=== PATIENT | male | born 1950 | race American Indian/Alaskan Native ===

== ENCOUNTER 2017-08-13 09:36 | Outpatient (RCR) | payer MEDICARE, SELFPAY ==
[2017-08-12 00:41] VITALS: BP 153/87; PULSE 80; RESP 18; TEMP 36.7
[2017-08-13 09:58] VITALS: BP 153/84; PULSE 97; RESP 18; TEMP 37.2
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
== END 2017-09-09 23:59 ==
LOC: WC 09:36
PROVIDERS: Family Provider Family Medicine; PCP Family Medicine; Visit Provider Surgery
DX: M86.662 Other chronic osteomyelitis, left tibia and fibula (principal); L97.822 Non-pressure chronic ulcer of other part of left lower leg with fat layer exposed; G51.0 Bell's palsy; Z87.891 Personal history of nicotine dependence
CPT/HCPCS: 11042

== ENCOUNTER → 2017-09-13 18:15 | Outpatient (RCR) | payer MEDICARE, SELFPAY ==
[2017-09-10 01:01] VITALS: BP 153/84; PULSE 97; RESP 18; TEMP 37.2
[2017-09-11 10:39] VITALS: BP 157/85; PULSE 88; RESP 16; TEMP 37.4
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
[2017-10-01 10:05] VITALS: BP 149/75; PULSE 92; RESP 18; TEMP 36.4
== END ==
LOC: WC 09-11 09:36 → MRI 18:15
PROVIDERS: Family Provider Family Medicine; PCP Family Medicine; Visit Provider Surgery
DX: M86.8X6 Other osteomyelitis, lower leg (principal); L97.829 Non-pressure chronic ulcer of other part of left lower leg with unspecified severity
CPT/HCPCS: 11042; 73720; 99213; A9585; G0463

== ENCOUNTER 2017-10-02 07:27 | Day surgery (SDC) | payer MEDICARE, SELFPAY ==
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
[2017-10-02] VITALS (14 sets, daily range): BP systolic 104–167; BP diastolic 66–101; PULSE 72–120; RESP 16–18; TEMP 36.6–37.1; O2SAT 90–98; BMI 34.4
--- NOTE | 2017-10-02 | UL_PTH ---
PATIENT: DEB HARRIS LOC: [facility] U#:[id number] AGE/SX: 67/M ROOM: RE10/02/[address]: Dr. Bruce Sin MD : 1950 BED: DIS: 10/02/2017 SPEC #: [id number] RECD: 10/02/17 14:46 STATUS: GABRIEL JIAN #: [id number] ANDREEA: 10/02/17 00:[address]: Bruce Sin DEPT: SURGICAL PATHOLOGY RECD BY: Arnoldo Hightower ENTERED: 10/02/17 14:47 SP TYPE: ULCER OTHR DR: Dr. Buddy Ramires MD Tissues: A - Leg, NOS B - Tibia, NOS Procedures: Decalcification bone/plaque Surgery Specimen Level IV HEADER OPERATION: Surgical preparation left anterior leg with incision and drainage PRE-OP DIAGNOSIS: Nonhealing traumatic infected ulcer, left anterior leg with exposed bone; chronic osteomyelitis TISSUE SUBMITTED: A ? Left anterior leg ulcer with exposed bone, B ? Tibia bone MICROSCOPIC DIAGNOSIS A. Left anterior leg ulcer, excision: Granulation with chronic and minimal acute inflammation. Hyperkeratosis. No evidence of malignancy. B. Tibia bone, biopsy: Chronic change. No evidence of acute osteomyelitis. AM:tanna 10/05/17 MICROSCOPIC DESCRIPTION Slides are reviewed. GROSS DESCRIPTION A - Received in fixative is one container labeled with the patient's name and designated anterior leg ulcer. The specimen consists of an O-shaped fragment of coronel skin measuring 3.5 x 2.6 cm and excised to a depth of 0.3 cm. The central portion of the specimen contains a defect (hole) measuring 2 x 1.5 cm. The inner rim of the specimen is inked in blue ink. The outer portion is inked in black ink. Greenhouse Instructor portions of the tissue are submitted in two cassettes. B - Received in fixative is one container labeled with the patient's name and designated bone, right tibia. The specimen consists of multiple irregular fragments of red-coronel bone that in aggregate measure 2.5 x 2.2 x 0.2 cm. The specimen is submitted in its entirety in one cassette after decalcification. / AM:tanna 10/02/17 TC:3 CPT: 55839 x2, [id number]
--- NOTE | 2017-10-02 07:35 | EKG12_ITS ---
Test Reason : PRE OP Blood Pressure : / mmHG Vent. Rate : 074 BPM Atrial Rate : 074 BPM P-R Int : 168 ms QRS Dur : 114 ms QT Int : 388 ms P-R-T Axes : 022 -20 -31 degrees QTc Int : 430 ms Normal sinus rhythm Voltage criteria for left ventricular hypertrophy Inferior infarct (cited on or before 13-FEB-2017) Abnormal ECG When compared with ECG of 13-FEB-2017 09:00, Premature ventricular complexes are no longer Present Confirmed by ALVIN HENSLEY ([id number]), news copy editor SALOME PHILIPPE ([id number]) on 10/04/2017 1:33:13 PM Referred By: Bruce Sin Confirmed By:ALVIN HENSLEY
[2017-10-02 07:55] LABS: Hemoglobin 15.5 g/dl (13.0-16.5); Mean Platelet Vol. 10.4 fl (6.2-12.0); Platelet Count 215 K/mm3 (150-450); RBC Distribution Width CV 13.1 % (11.6-14.6); RBC Distribution Width SD 44.9 fl (35.1-43.9); White Blood Count 6.1 K/mm3 (4.4-11.0)
[2017-10-02 07:57] LABS: Scan Indicated on CBC? Y/N NO
[2017-10-02 08:20] LABS: Anion Gap 9 (5-15); BUN 22 mg/dL (7-18); BUN/Creat Ratio 22.3 RATIO (10-20); Chloride 109 mmol/L (98-107); Creatinine, Serum 0.99 mg/dL (0.70-1.30); EST Glomerular Filtration Rate 80 mL/min (>60); Est Glom Filt Rate - Afr Amer 97 mL/min (>60); Estimated Creatinine Clearance 77.12 ml/min; Glucose 100 mg/dL (70-110); Potassium 4.3 mmol/L (3.5-5.1); Prealbumin 29.7 mg/dL (20.0-40.0); Sodium Level 140 mmol/L (136-145)
[2017-10-02] MEDS: Clindamycin 900 MG/50 ML BAG 75 MG IV (09:20)
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
--- NOTE | 2017-10-02 10:46 | PCM.DC ---
You will use the following diet at home:: No restrictions, Other - encourage nutritional supplementation with protein to help the healing process. Discharge Activity: May not drive while taking narcotic pain medications., - - keep left leg elevated when sitting. patient may ambulate. No standing. May shower in (days): 1 - wear plastic bag over left leg when showering. May resume sexual activity in: No Restrictions Weight Bearing Status: Weight bearing as tolerated Keep extremity elevated above heart level: Left Leg Additional Activity Instructions:: Daily dressing changes with adaptic followed by Silver dressing and gauze and an SANJUANA wrap for compression. Call your doctor if your incision/area has: Continuous Slow Oozing, Sudden Increased Bleeding, Increased Pain/ Swelling, Increased Redness, Foul Smelling Discharge, Swelling at the incision site Call your doctor if you observe: Coldness, Increased Pain, Numbness or Tingling, Shortness of breath, Chest pain, Calf discomfort, Uncontrolled pain Suture Line Care: - Change Dressing in (Days):: 1 - daily dressing changes with adaptic followed by Silver dressing and gauze and an SANJUANA wrap. Cleanse incision/area with: - - wear plastic bag over left leg when showering. Allergies/Adverse Reactions: Allergies Penicillins Allergy (Verified 09/26/17 10:25) Rash propoxyphene [From Darvocet-N] Allergy (Verified 09/26/17 10:25) Rash Medications to take at Discharge Atorvastatin Calcium [Lipitor] 40 mg PO QHS 05/11/16 Tamsulosin HCl [Flomax] 0.4 mg PO DAILY 05/11/16 Aspirin [Aspir-Low] 81 mg PO DAILY 02/26/17 Clindamycin HCl [Cleocin] 300 mg PO TID #42 cap 10/02/17 Clopidogrel Bisulfate [Plavix] 75 mg PO DAILY #0 10/02/17 Levofloxacin [Levaquin] 500 mg PO DAILY #14 tab 10/02/17 Oxycodone HCl/Acetaminophen [Percocet 5/325] 1 - 2 tab PO 4X/DAY PRN PRN 6 Days #50 tab 10/02/17 The following prescriptions were given: Levofloxacin [Levaquin] 500 mg PO DAILY #14 tab Oxycodone HCl/Acetaminophen [Percocet 5/325] 1 - 2 tab PO 4X/DAY PRN PRN 6 Days #50 tab PRN Reason: Pain Clindamycin HCl [Cleocin] 300 mg PO TID #42 cap Primary Care Physician: Buddy Ramires [Primary Care Provider] - Please Follow Up With: Bruce Sin MD When: sunday10/08/17 at [facility]. call [phone] if questions. Proposed Discharge Date: 10/02/17
--- NOTE | 2017-10-02 10:50 | DCINST_ITS ---
You will use the following diet at home:: No restrictions, Other - encourage nutritional supplementation with protein to help the healing process. Discharge Activity: May not drive while taking narcotic pain medications., - - keep left leg elevated when sitting. patient may ambulate. No standing. May shower in (days): 1 - wear plastic bag over left leg when showering. May resume sexual activity in: No Restrictions Weight Bearing Status: Weight bearing as tolerated Keep extremity elevated above heart level: Left Leg Additional Activity Instructions:: Daily dressing changes with adaptic followed by Silver dressing and gauze and an SANJUANA wrap for compression. Call your doctor if your incision/area has: Continuous Slow Oozing, Sudden Increased Bleeding, Increased Pain/ Swelling, Increased Redness, Foul Smelling Discharge, Swelling at the incision site Call your doctor if you observe: Coldness, Increased Pain, Numbness or Tingling , Shortness of breath, Chest pain, Calf discomfort, Uncontrolled pain Suture Line Care: - Change Dressing in (Days):: 1 - daily dressing changes with adaptic followed by Silver dressing and gauze and an SANJUANA wrap. Cleanse incision/area with: - - wear plastic bag over left leg when showering. Allergies/Adverse Reactions: Allergies Penicillins Allergy (Verified 09/26/17 10:25) Rash propoxyphene [From Darvocet-N] Allergy (Verified 09/26/17 10:25) Rash Medications to take at Discharge Atorvastatin Calcium [Lipitor] 40 mg PO QHS 05/11/16 Tamsulosin HCl [Flomax] 0.4 mg PO DAILY 05/11/16 Aspirin [Aspir-Low] 81 mg PO DAILY 02/26/17 Clindamycin HCl [Cleocin] 300 mg PO TID #42 cap 10/02/17 Clopidogrel Bisulfate [Plavix] 75 mg PO DAILY #0 10/02/17 Levofloxacin [Levaquin] 500 mg PO DAILY #14 tab 10/02/17 Oxycodone HCl/Acetaminophen [Percocet 5/325] 1 - 2 tab PO 4X/DAY PRN PRN 6 Days #50 tab 10/02/17 The following prescriptions were given: Levofloxacin [Levaquin] 500 mg PO DAILY #14 tab Oxycodone HCl/Acetaminophen [Percocet 5/325] 1 - 2 tab PO 4X/DAY PRN PRN 6 Days #50 tab PRN Reason: Pain Clindamycin HCl [Cleocin] 300 mg PO TID #42 cap Primary Care Physician: Buddy Ramires [Primary Care Provider] - Please Follow Up With: Bruce Sin MD When: sunday10/08/17 at [facility]. call [phone] if questions. Proposed Discharge Date: 10/02/17
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
== END 2017-10-02 14:11 | disposition home or self-care (01) ==
LOC: SDC 07:28 → AC 07:29
PROVIDERS: Anesthesiology; Family Provider Family Medicine; PCP Family Medicine; Visit Provider Surgery
PROC: (CPT 15002; principal; 2017-10-02 09:00)
DX: M86.662 Other chronic osteomyelitis, left tibia and fibula (principal); L97.826 Non-pressure chronic ulcer of other part of left lower leg with bone involvement without evidence of necrosis; I25.10 Atherosclerotic heart disease of native coronary artery without angina pectoris; V29.9XXS Motorcycle rider (driver) (passenger) injured in unspecified traffic accident, sequela; G51.0 Bell's palsy; H02.102 Unspecified ectropion of right lower eyelid; H02.20 Unspecified lagophthalmos; H04.201 Unspecified epiphora, right side; F17.210 Nicotine dependence, cigarettes, uncomplicated; L85.9 Epidermal thickening, unspecified; Z95.5 Presence of coronary angioplasty implant and graft; I25.2 Old myocardial infarction; E78.00 Pure hypercholesterolemia, unspecified; Z79.82 Long term (current) use of aspirin; Z79.02 Long term (current) use of antithrombotics/antiplatelets; Z79.899 Other long term (current) drug therapy
CPT/HCPCS: 01480; 15002; 27640; 80048; 84134; 85027; 87070; 87075; 87076; 87077; 87102; 87186; 87205; 87206; 88304; 88305; 88311; 93005; 94640; J7120; A4216; J2405

== ENCOUNTER 2017-10-08 11:00 | Outpatient (RCR) | payer MEDICARE, SELFPAY ==
[2017-10-01 13:06] VITALS: RESP 20; TEMP 36.3
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
[2017-10-08 11:17] VITALS: BP 149/98; PULSE 100; RESP 18; TEMP 36.2
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
== END 2017-10-10 23:59 ==
LOC: WC 11:00
PROVIDERS: Family Provider Family Medicine; PCP Family Medicine; Visit Provider Surgery
DX: L97.826 Non-pressure chronic ulcer of other part of left lower leg with bone involvement without evidence of necrosis (principal); H02.102 Unspecified ectropion of right lower eyelid; M86.662 Other chronic osteomyelitis, left tibia and fibula; L84 Corns and callosities; G51.0 Bell's palsy; H02.20 Unspecified lagophthalmos; F17.200 Nicotine dependence, unspecified, uncomplicated; T14.8XXS Other injury of unspecified body region, sequela; V29.9XXS Motorcycle rider (driver) (passenger) injured in unspecified traffic accident, sequela; H04.201 Unspecified epiphora, right side

== ENCOUNTER → 2017-10-09 09:54 | Outpatient (CLI) | payer MEDICARE, SELFPAY | PROVIDERS: Family Provider Family Medicine; PCP Family Medicine; Visit Provider Surgery | DX: M86.662 Other chronic osteomyelitis, left tibia and fibula (principal); L97.926 Non-pressure chronic ulcer of unspecified part of left lower leg with bone involvement without evidence of necrosis; L08.9 Local infection of the skin and subcutaneous tissue, unspecified | CPT/HCPCS: 36569; A4216 ==

== ENCOUNTER 2017-11-05 10:15 | Outpatient (RCR) | payer MEDICARE, SELFPAY ==
[2017-10-02 08:09] VITALS: BMI 34.4
[2017-10-08 11:17] VITALS: BP 149/98
[2017-10-11 01:16] VITALS: PULSE 100; RESP 18; TEMP 36.2
[2017-10-22 10:11] VITALS: BP 178/78; PULSE 71; RESP 16; TEMP 37.5; BMI 34.4
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
[2017-11-05 11:34] VITALS: BP 155/94; PULSE 98; RESP 18; TEMP 36.6; BMI 34.4
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
== END 2017-11-07 23:59 ==
LOC: WC 10:15
PROVIDERS: Family Provider Family Medicine; PCP Family Medicine; Visit Provider Surgery
DX: L97.826 Non-pressure chronic ulcer of other part of left lower leg with bone involvement without evidence of necrosis (principal); V29.9XXS Motorcycle rider (driver) (passenger) injured in unspecified traffic accident, sequela; Z87.891 Personal history of nicotine dependence; G51.0 Bell's palsy; H02.20 Unspecified lagophthalmos; M86.662 Other chronic osteomyelitis, left tibia and fibula; L84 Corns and callosities
CPT/HCPCS: 11042

== ENCOUNTER 2017-11-24 13:15 | Inpatient (IN) | payer MEDICARE, SELFPAY ==
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
[2017-11-23] VITALS (11 sets, daily range): BP systolic 125–177; BP diastolic 72–106; PULSE 88–118; RESP 16–18; TEMP 36.2–37.2; O2SAT 93–98; BMI 32.8; BMI 34.8
--- NOTE | 2017-11-23 11:55 | BON_PTH ---
PATIENT: DEB HARRIS LOC: [facility]2 U#:[id number] AGE/SX: 67/M ROOM: [id number] RE11/24/[address]: Dr. Bruce Sin MD : 1950 BED: 1 DIS: 11/26/2017 SPEC #: [id number] RECD: 11/26/17 08:02 STATUS: GABRIEL JIAN #: [id number] ANDREEA: 11/23/17 11:[address]: Bruce Sin DEPT: SURGICAL PATHOLOGY RECD BY: Clifford Aguayo ENTERED: 11/26/17 12:58 SP TYPE: Bone OTHR DR: Dr. Buddy Ramires MD Tissues: A - Tibia, NOS B - Soft tissues, NOS Procedures: Decalcification bone/plaque Special Stain Group I Surgery Specimen Level III AFB Stain (control) GMS Stain (control) HEADER OPERATION: Excisional debridement ulcer, partial ostectomy, flap reconstruction PRE-OP DIAGNOSIS: Nonhealing traumatic infected ulcer, left anterior leg with exposed bone; chronic osteomyelitis; history of bone graft placement, left leg TISSUE SUBMITTED: A. Debrided bone left tibia, B. Debrided soft tissue left leg MICROSCOPIC DIAGNOSIS A. Debrided bone left tibia: Pieces of bone, negative for acute osteomyelitis. B. Debrided soft tissue left leg: Pieces of skin with underlying tissue with ulceration, acute and chronic inflammation and granulation tissue reaction. Special stains for acid fast bacilli and fungi are negative for organisms; matched controls are appropriate. IZABELA:tanna 11/29/17 MICROSCOPIC DESCRIPTION Slides are reviewed. GROSS DESCRIPTION A - Received in fixative is one container labeled with the patient's name and designated debrided bone left tibia. The specimen consists of multiple pieces of bone that in aggregate measure 3 x 2.5 x 0.3 cm. The entire specimen is submitted in one cassette after decalcification. B - Received in fixative is one container labeled with the patient's name and designated debrided soft tissue left leg. The specimen consists of multiple pieces of skin and soft tissue that in aggregate measure 3 x 2 x 0.5 cm. The entire specimen is submitted in two cassettes. / IZABELA:tanna 11/26/17 TC:2 CPT: 46076 x2, 15627 x2, [id number]
[2017-11-23 12:00] LABS: Prealbumin 32.5 mg/dL (20.0-40.0)
[2017-11-23] MEDS: Mupirocin Ointment 22gm Tube 1 APPLIC (17:14)
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
[2017-11-23] MEDS: Ondansetron 4 MG/2 ML Vial IV (20:45)
[2017-11-23 20:59] LABS: Anion Gap 9 (5-15); BUN 18 mg/dL (7-18); BUN/Creat Ratio 21.6 RATIO (10-20); Calcium,Total 8.7 mg/dL (8.5-10.1); Chloride 110 mmol/L (98-107); Creatinine, Serum 0.83 mg/dL (0.70-1.30); EST Glomerular Filtration Rate 98 mL/min (>60); Est Glom Filt Rate - Afr Amer 118 mL/min (>60); Estimated Creatinine Clearance 94.79 ml/min; Glucose 93 mg/dL (74-106); Potassium 3.9 mmol/L (3.5-5.1); Sodium Level 142 mmol/L (136-145)
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
[2017-11-23] MEDS: Docusate Sodium 100 MG Capsule PO (22:51)
[2017-11-23] MEDS: MethylPREDNISolone 125 MG/2 ML Vial IV (22:51)
[2017-11-23] MEDS: HYDROmorphone 1 MG/ML Syringe IV (22:58)
[2017-11-23] MEDS: Lactated Ringers 1,000 ML 60 ML IV (23:01)
[2017-11-24 00:20] VITALS: BP 145/79; PULSE 94; RESP 16; TEMP 36.6; O2SAT 97
[2017-11-24] MEDS: HYDROmorphone 1 MG/ML Syringe IV (04:43)
[2017-11-24] MEDS: 0.9% NaCl PICC Flush IV ×3 (04:43→22:13)
[2017-11-24] MEDS: Ondansetron 4 MG/2 ML Vial IV (04:47)
[2017-11-24 04:55] VITALS: BP 139/73; PULSE 96; RESP 18; TEMP 36.3; O2SAT 94
[2017-11-24] MEDS: MethylPREDNISolone 125 MG/2 ML Vial IV ×3 (05:04→22:14)
[2017-11-24] MEDS: Enoxaparin 40 MG/0.4 ML Syringe SC (05:04)
[2017-11-24 05:17] LABS: Hematocrit 44.3 % (40-54); Hemoglobin 14.2 g/dl (13.0-16.5); Mean Corp Hgb Conc 32.1 g/gl (32-36); Mean Corpuscular Hgb 30.1 pg (27.0-32.0); Mean Corpuscular Volume 94.1 fL (80-94); Mean Platelet Vol. 10.4 fl (6.2-12.0); Platelet Count 195 K/mm3 (150-450); RBC Distribution Width CV 13.9 % (11.6-14.6); RBC Distribution Width SD 47.7 fl (35.1-43.9); Red Blood Count 4.71 M/mm3 (4.6-6.2); White Blood Count 2.7 K/mm3 (4.4-11.0)
[2017-11-24 05:18] LABS: Scan Indicated on CBC? Y/N YES- FLAGS NOTED
[2017-11-24 05:36] LABS: Anion Gap 8 (5-15); BUN 18 mg/dL (7-18); BUN/Creat Ratio 15.7 RATIO (10-20); Calcium,Total 8.7 mg/dL (8.5-10.1); Chloride 105 mmol/L (98-107); Creatinine, Serum 1.15 mg/dL (0.70-1.30); EST Glomerular Filtration Rate 67 mL/min (>60); Est Glom Filt Rate - Afr Amer 81 mL/min (>60); Estimated Creatinine Clearance 68.42 ml/min; Glucose 208 mg/dL (74-106); Potassium 3.9 mmol/L (3.5-5.1); Prealbumin 30.6 mg/dL (20.0-40.0); Sodium Level 139 mmol/L (136-145)
[2017-11-24 05:53] LABS: Differential Comment SCANNED
[2017-11-24] MEDS: Docusate Sodium 100 MG Capsule PO ×2 (07:46→22:14)
[2017-11-24 10:55] VITALS: BP 138/61; PULSE 105; RESP 18; TEMP 36.8; O2SAT 95
--- NOTE | 2017-11-24 11:14 | PCM.RX.CS ---
Consult Pharmacy has been consulted to manage selected antiobiotic: Vancomycin Type of Consult: Follow-up Suspected Infection: Skin/Soft tissue Prior Doses of Antibiotics Received/Current Regimen: Medications Vancomycin HCl 1,750 mg/ (Sodium Chloride) 535 mls @ 260 mls/hr IV Q12H [facility] Last Admin: 11/24/17 01:38 Dose: 260 mls/hr Vancomycin HCl (Vancomycin) 1,000 mg in 200 mls @ 200 mls/hr IV PREOP ONE Stop: 11/23/17 07:59 Last Admin: 11/23/17 11:07 Dose: 200 mls/hr Labs: Sodium 139 mmol/L (136-145) 11/24/17 05:00 Potassium 3.9 mmol/L (3.5-5.1) 11/24/17 05:00 Chloride 105 mmol/L (98-107) 11/24/17 05:00 Carbon Dioxide 26.0 mmol/L (21.0-32.0) 11/24/17 05:00 Anion Gap 8 (5-15) 11/24/17 05:00 BUN 18 mg/dL (7-18) 11/24/17 05:00 Creatinine 1.15 mg/dL (0.70-1.30) 11/24/17 05:00 Est GFR (MDRD) Af Amer 81 mL/min (>60) 11/24/17 05:00 Est GFR (MDRD) Non-Af 67 mL/min (>60) 11/24/17 05:00 BUN/Creatinine Ratio 15.7 RATIO (10-20) 11/24/17 05:00 Glucose 208 mg/dL (74-106) H 11/24/17 05:00 Microbiology: Microbiology 11/23/17 14:00 Tissue - Leg, Left Wound Culture - Preliminary Gram negative elise 11/23/17 14:00 Bone - Leg, Left Wound Culture - Preliminary Gram negative elise Weight used for dosin.5 kg Estimated Creatinine Clearance: 68 mL/min Goal Trough: 10-15 mcg/mL Pharmacy Plan for Drug Dosing: SCr increased from yesterday. Recommend vancomycin 1000mg IV q12h, check trough Sunday. Pharmacy Service will continue to monitor and adjust dosing as required. Follow-Up Labs: Trough Vancomycin Labs to be done on [date and time ordered]: 11/26/17 @ 0600
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
--- NOTE | 2017-11-24 13:16 | CASEMGMT ---
Per physician rounds w/Dr. Sin. Pt will be able to return home, likely tomorrow or Sunday. Has crutches and splint for leg. Pt has PICC line, if IV antibiotics need to be reordered, will need to arrange on Sunday. If po antibiotics are recommended, pt can dc Sunday with family support and f/u with Dr. Sin. Saranya JAMESONN RN ACM
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
[2017-11-24] MEDS: Lactated Ringers 1,000 ML 60 ML IV (13:36)
[2017-11-24] MEDS: oxyCODONE 5 MG Tablet 10 MG PO (13:49)
[2017-11-24 17:00] VITALS: BP 149/62; PULSE 98; RESP 18; TEMP 36.9; O2SAT 94
[2017-11-24 22:20] VITALS: BP 144/67; PULSE 88; RESP 18; TEMP 36.8; O2SAT 96
[2017-11-25] MEDS: oxyCODONE 5 MG Tablet 10 MG PO ×2 (01:00→19:56)
[2017-11-25 04:20] VITALS: BP 140/68; PULSE 83; RESP 18; TEMP 36.9; O2SAT 94
[2017-11-25] MEDS: 0.9% NaCl PICC Flush IV ×4 (06:00→21:36)
[2017-11-25] MEDS: MethylPREDNISolone 125 MG/2 ML Vial IV ×3 (06:08→21:36)
[2017-11-25] MEDS: Lactated Ringers 1,000 ML 60 ML IV (06:08)
[2017-11-25] MEDS: Enoxaparin 40 MG/0.4 ML Syringe SC (06:12)
[2017-11-25 06:23] LABS: Hematocrit 41.2 % (40-54); Hemoglobin 13.6 g/dl (13.0-16.5); Mean Corpuscular Hgb 31.1 pg (27.0-32.0); Mean Corpuscular Volume 94.1 fL (80-94); Mean Platelet Vol. 10.8 fl (6.2-12.0); Platelet Count 204 K/mm3 (150-450); RBC Distribution Width CV 13.8 % (11.6-14.6); RBC Distribution Width SD 45.1 fl (35.1-43.9); Red Blood Count 4.38 M/mm3 (4.6-6.2); White Blood Count 4.8 K/mm3 (4.4-11.0)
[2017-11-25 06:26] LABS: Erythrocyte Sedimentation Rate 22 mm/hr (0-20); Scan Indicated on CBC? Y/N NO
[2017-11-25 06:27] LABS: Anion Gap 6 (5-15); BUN 21 mg/dL (7-18); CRP 9.54 mg/L (0.0-3.0); Calcium,Total 8.7 mg/dL (8.5-10.1); Chloride 107 mmol/L (98-107); Creatinine, Serum 0.91 mg/dL (0.70-1.30); EST Glomerular Filtration Rate 88 mL/min (>60); Est Glom Filt Rate - Afr Amer 106 mL/min (>60); Estimated Creatinine Clearance 86.46 ml/min; Glucose 192 mg/dL (74-106); Potassium 4.4 mmol/L (3.5-5.1); Sodium Level 142 mmol/L (136-145)
[2017-11-25] MEDS: Docusate Sodium 100 MG Capsule PO ×2 (09:20→21:35)
[2017-11-25 10:00] VITALS: BP 138/71; PULSE 94; RESP 20; TEMP 36.5; O2SAT 96
[2017-11-25 11:32] VITALS: O2SAT 96
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
[2017-11-25 16:00] VITALS: BP 148/71; PULSE 95; RESP 20; TEMP 36.6; O2SAT 95
[2017-11-25] MEDS: diazePAM 5 MG Tablet PO (17:00)
[2017-11-25 20:02] VITALS: BP 149/60; PULSE 89; RESP 18; TEMP 36.8; O2SAT 96
[2017-11-26] MEDS: diazePAM 5 MG Tablet PO ×3 (00:09→11:44)
[2017-11-26] MEDS: Lactated Ringers 1,000 ML 60 ML IV (00:48)
[2017-11-26 02:55] VITALS: BP 158/70; PULSE 76; RESP 18; TEMP 36.6; O2SAT 93
[2017-11-26] MEDS: MethylPREDNISolone 125 MG/2 ML Vial IV (06:33)
[2017-11-26] MEDS: 0.9% NaCl PICC Flush IV (06:33)
[2017-11-26] MEDS: Enoxaparin 40 MG/0.4 ML Syringe SC (06:33)
[2017-11-26 08:47] VITALS: BP 157/79; PULSE 83; RESP 16; TEMP 36.6; O2SAT 94
[2017-11-26] MEDS: Docusate Sodium 100 MG Capsule PO (08:51)
--- NOTE | 2017-11-26 09:45 | CASEMGMT ---
Addendum entered by Micheal Thapa 11/26/17 13:37: Per Mary, wound nurse- pt will have disposable wound vac, will not need home health on dc, pt will f/u with Dr. Sin next Sunday. [facility] will be cancelled. Script for walker faxed to [facility] and will be delivered to hospital. Original Note: Intro role of CM to patient. Plan is for dc today with Home Health. Pt does not have preference for DME company or Home Health. Will need walker on dc. Awaiting Dr. Sin for script and Home Health orders. Referral faxed to [facility] in [place]. Saranya BSN RN ACM
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
--- NOTE | 2017-11-26 13:51 | PCM.DC ---
You will use the following diet at home:: No restrictions, Other - encourage nutritional supplementation with protein to help the healing process. Discharge Activity: May Not Drive, May Shower - wear a plastic bag over left leg when showering., Use Walker - minimize standing when using the walker for ambulation., - - elevate left leg when sitting. May shower in (days): 1 - wear plastic bag over left leg when showering. May resume sexual activity in: No Restrictions Weight Bearing Status: Weight bearing as tolerated, - - no standing. Keep extremity elevated above heart level: Left Leg Call your doctor if your incision/area has: Continuous Slow Oozing, Sudden Increased Bleeding, Increased Pain/ Swelling, Increased Redness, Foul Smelling Discharge, Swelling at the incision site Call your doctor if you observe: Fever of 101 or Higher, Coldness, Increased Pain, Shortness of breath, Chest pain, Calf discomfort, Uncontrolled pain Suture Line Care: - - after VAC is removed next week at wound center, will apply antibiotic ointment to the skin graft and suture line daily. Change Dressing in (Days):: 2 - abdominal wall dressing as needed. Cleanse incision/area with: - - wear plastic bag over left leg when showering. Drain: Suction - yvon drain to bulb suction. empty and record output daily. Additional Instructions: Maintain PICC line until the Pathology is back. If Pathology is positive for osteomyelitis, then will need IV antibiotics. If Pathology is negative for osteomyelitis, then will pull PICC line next week at the wound center. Allergies/Adverse Reactions: Allergies Penicillins Allergy (Verified 11/16/17 08:49) Rash propoxyphene [From Darvocet-N] Allergy (Verified 11/16/17 08:49) Rash Medications to take at Discharge Atorvastatin Calcium [Lipitor] 40 mg PO QHS 05/11/16 Tamsulosin HCl [Flomax] 0.4 mg PO DAILY 05/11/16 Aspirin [Aspir-Low] 81 mg PO DAILY 02/26/17 Clopidogrel Bisulfate [Plavix] 75 mg PO DAILY #0 10/02/17 Diazepam [Valium] 5 mg PO 4X/DAY PRN PRN #30 tab 11/26/17 Docusate Sodium [Colace] 100 mg PO BID #60 cap 11/26/17 Levofloxacin [Levaquin] 500 mg PO DAILY #14 tab 11/26/17 Oxycodone HCl/Acetaminophen [Percocet 5/325] 1 - 2 tab PO 4X/DAY PRN PRN 7 Days #60 tab 11/26/17 ProMETHAzine [Phenergan] 25 mg PO Q4H PRN PRN #30 tab 11/26/17 Walker [Ultra-Light Rollator] 1 ea MC .QDAILY #1 ea 11/26/17 The following prescriptions were given: ProMETHAzine [Phenergan] 25 mg PO Q4H PRN PRN #30 tab PRN Reason: NAUSEA/VOMITING Diazepam [Valium] 5 mg PO 4X/DAY PRN PRN #30 tab PRN Reason: Spasms Levofloxacin [Levaquin] 500 mg PO DAILY #14 tab Oxycodone HCl/Acetaminophen [Percocet 5/325] 1 - 2 tab PO 4X/DAY PRN PRN 7 Days #60 tab PRN Reason: Pain Walker [Ultra-Light Rollator] 1 ea MC .QDAILY #1 ea Docusate Sodium [Colace] 100 mg PO BID #60 cap Primary Care Physician: Buddy Ramires [Primary Care Provider] - Please Follow Up With: Bruce Sin MD - call [phone] if any questions. When: sunday12/03/17 at [facility] center Proposed Discharge Date: 11/26/17
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
[2017-11-26 14:18] VITALS: BP 157/80; PULSE 90; RESP 18; TEMP 36.8; O2SAT 98
--- NOTE | 2017-11-26 14:31 | NURSING ---
wound photo: left medial lower leg skin graft
== END 2017-11-26 14:56 | disposition home or self-care (01) | DRG 574 ==
LOC: SDC 13:26 → MS2 11-25 18:00
PROVIDERS: Admitting Provider Surgery; Family Provider Family Medicine; PCP Family Medicine; Visit Provider Surgery
DX: L97.826 Non-pressure chronic ulcer of other part of left lower leg with bone involvement without evidence of necrosis (principal); M86.662 Other chronic osteomyelitis, left tibia and fibula; I25.10 Atherosclerotic heart disease of native coronary artery without angina pectoris; Z87.891 Personal history of nicotine dependence; Z95.5 Presence of coronary angioplasty implant and graft; S82.202S Unspecified fracture of shaft of left tibia, sequela; V29.9XXS Motorcycle rider (driver) (passenger) injured in unspecified traffic accident, sequela
CPT/HCPCS: 80048; 84134; 85027; 85652; 86140; 87070; 87075; 87077; 87102; 87186; 87205; 87206; 88304; 88305; 88311; 88312; 94762; 97802; J3010; J7040; J7120; A4216; J2405

== ENCOUNTER 2017-12-01 09:16 | Emergency (ER) | payer MEDICARE, SELFPAY ==
[2017-12-01 09:19] VITALS: BP 153/101; PULSE 87; RESP 18; TEMP 36.6; O2SAT 97; BMI 32.8
--- NOTE | 2017-12-01 09:21 | NURSING ---
CALLED MED/SURG UNIT FOR CONSULT REGARDING WOUND VAC ALARMING. APEARS TO BE FROM OCCLUSION DUE TO VAC BEING TO FULL OF DRAINAGE. DISPOSIBLE NO WAY TO EMPTY. CHARGE DIONICIO FROMMED SURG LOOKED AT PUMP SUGGESTD DR QUIÑONES BE NITIFED, USUALLY NOT THIS MUCH DRAINAGE IS ANTICIPATED WHEN THESE PUMPS PLACED. CEHCKED IN AT THIS TIME.
--- NOTE | 2017-12-01 09:32 | ED.RN ---
WOUND HAS NOT BEEN VISUALIZED AT THIS POINT. PT DOES NOT KNOW THE TYPE OF DRAIN. DRAIN HAS A SUCTION BULB AT THE, POSSIBLE KSENIA PAREKH DRAIN, WITH MINIMAL DRAINAGE IN THE BULB. THE WOUND VAC IS FULL AND BEEPING.
--- NOTE | 2017-12-01 10:52 | ED.DCSUM_ITS ---
- ER Visit Summary Date of Service: 12/01/17 Chief Complaint: Nixon for via VAC full History of Present Illness: The patient is a 67 M patient had surgery this past week by Dr. marge Burr for chronic osteomyelitis and nonhealing leg ulcer. He had reconstructive surgery with a flap and graft. A Via VAC was applied. He presents because the reservoir is full. No constitutional, ocular, auditory or visual symptoms. He has no respiratory or cardiac symptoms. He denies fever, chills or sweats. Physical Examination: He remained in place. The reservoir of the via VAC is full. Toes appear normal. Dressing was not taken down. Test Results: None Emergency Department Course and Treatment: There are speaking with Dr. Sin the device was replaced. And he is to follow-up with Dr. marge regan this coming week. Treatment Plan: Replace device and outpatient follow-up Disposition: Discharged to home Impression: Postop wound evaluation for bleeding This note was generated with [employer] dictation software. It may contain incorrect words, spelling, and punctuation that were not noted in review of the chart prior to signing ED Disposition - Plan for ED Patient: Disposition: Home or Assisted Living Chief Complaint: Wound Check Instructions: ED Wound Check Post Op Bleeding Referrals: Buddy Ramires [Primary Care Provider] - Bruce Sin MD [STAFF PHYSICIAN] - 5-7 Days
[2017-12-01 11:33] VITALS: BP 145/98; PULSE 84; RESP 22; O2SAT 97
--- NOTE | 2017-12-01 11:35 | ED.RN ---
THIS NURSE REVIEWED D/C INSTRUCTIONS WITH PT. PT VERBALIZED UNDERSTANDING OF INSTRUCTIONS. PT ASSISTED TO VEHICLE VIA W/C.
== END 2017-12-01 11:35 | disposition home or self-care (01) ==
PROVIDERS: Emergency Provider Emergency Medicine; Family Provider Family Medicine; PCP Family Medicine
DX: Z48.03 Encounter for change or removal of drains (principal); M86.60 Other chronic osteomyelitis, unspecified site; Z87.891 Personal history of nicotine dependence
CPT/HCPCS: 99282

== ENCOUNTER 2017-12-03 10:03 | Outpatient (RCR) | payer MEDICARE, SELFPAY ==
[2017-11-08 00:56] VITALS: BP 149/98; PULSE 98; RESP 18; TEMP 36.6
[2017-12-03 10:07] VITALS: BP 129/80; PULSE 93; RESP 22; TEMP 36
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
== END 2017-12-08 23:59 ==
LOC: WC 10:03
PROVIDERS: Family Provider Family Medicine; PCP Family Medicine; Visit Provider Surgery
DX: L97.826 Non-pressure chronic ulcer of other part of left lower leg with bone involvement without evidence of necrosis (principal); M86.662 Other chronic osteomyelitis, left tibia and fibula; Z87.891 Personal history of nicotine dependence
CPT/HCPCS: 99213; G0463

== ENCOUNTER 2017-12-24 10:45 | Outpatient (RCR) | payer MEDICARE, SELFPAY ==
[2017-12-09 00:48] VITALS: BP 149/98; PULSE 93; RESP 22; TEMP 36
[2017-12-10 10:33] VITALS: BP 148/74; PULSE 102; RESP 18; TEMP 36.5
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
[2017-12-17 09:53] VITALS: BP 142/79; PULSE 106; RESP 16; TEMP 37.6
--- NOTE | 2017-12-17 11:14 | RAD_ITS ---
STUDY: X-RAY CHEST REASON FOR EXAM: Male, 67 years old. Hyperbaric oxygen therapy TECHNIQUE: PA and lateral views of the chest. COMPARISON: Prior study of 03/26/2017 FINDINGS: The lungs are clear and expanded. There is no demonstrated pleural abnormality. Normal size heart. Normal mediastinum and natalia. Normal visualized pulmonary arteries. Normal visualized aortic arch and descending thoracic aorta. There are diffuse degenerative changes of the visualized thoracic spine. Normal visualized ribs, clavicles, and shoulders. There is no demonstrated abnormality of the visualized soft tissue structures of the upper abdomen. RAD/Chest PA and Lateral IMPRESSION: Degenerative changes, as described above. No demonstrated acute cardiopulmonary process. Electronically Signed: Clemente Retana MD at 18:01 EDT , Service support ,
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
--- NOTE | 2017-12-19 12:58 | NURSING ---
This nurse started to evaluate necessary documentation from Dr. Sin to initiate HBO therapy. This documentation is necessary to submit to the insurance company as prior authorization is required. It is to be noted that a wound healing progress has not been signed and is in draft form for all wound care encounters since 10/08/2017. This has been brought to the CM attention and will also be discussed with Dr. Sin. It is also noted that medical necessity is not documented either. Compromise percentage and and graft viability need to be documented as well.
[2017-12-24 11:21] VITALS: BP 126/73; PULSE 104; RESP 18; TEMP 37.6
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
--- NOTE | 2018-01-02 10:37 | NURSING ---
This nurse spoke with pts GURDEEP Rivera RN, on 01/01/[address] Sin's notes being in draft form since 10/08/17. Kary has informed Dr. Sin of this issue. Dr. Sin has made mention of wanting pt to do HBO again but in order to start the preapproval for the pt this nurse is in need of these progress notes stating medical necessity for comp graft dx ( percentage of compromise and graft viability need to be noted as well). Will follow up with Kary again as well make Dr. Sin aware of the need for this again.
== END 2018-01-07 23:59 ==
LOC: WC 10:45
PROVIDERS: Family Provider Family Medicine; PCP Family Medicine; Visit Provider Surgery
DX: L97.822 Non-pressure chronic ulcer of other part of left lower leg with fat layer exposed (principal); M86.162 Other acute osteomyelitis, left tibia and fibula; R60.0 Localized edema; F17.200 Nicotine dependence, unspecified, uncomplicated; M79.89 Other specified soft tissue disorders
CPT/HCPCS: 11042; 11045; 71046; 97597; 97598; 99213; G0463

== ENCOUNTER 2018-02-07 09:00 | Outpatient (RCR) | payer MEDICARE, SELFPAY ==
[2018-01-08 00:41] VITALS: BP 149/98; PULSE 104; RESP 18; TEMP 37.6
[2018-01-08 12:44] VITALS: BP 144/72; PULSE 97; RESP 18; TEMP 36.4
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
--- NOTE | 2018-01-09 08:47 | NURSING ---
Spoke with PD this am about starting preauthorization for HBO and the need for the modality sheet to be finished by the CM. After discussing decided that the best course of action is for this nurse (who is not the CM) to start to get the needed information on the modality sheet to start the preauth as this is time sensitive.
[2018-01-21 09:51] VITALS: BP 131/88; BP 143/89; PULSE 79; PULSE 86; RESP 16; TEMP 36.6; TEMP 37.2
[2018-01-21 12:01] VITALS: BP 150/74; PULSE 79; RESP 16; TEMP 36.6
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
[2018-01-22 08:29] VITALS: BP 141/94; BP 164/81; PULSE 85; PULSE 99; RESP 16; RESP 18
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
[2018-01-23 09:44] VITALS: BP 142/82; BP 144/88; PULSE 103; PULSE 81; RESP 16; RESP 18; TEMP 36.6; TEMP 36.9
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
[2018-01-24 09:15] VITALS: BP 133/88; BP 175/75; PULSE 105; PULSE 85; RESP 16; RESP 18; TEMP 36.6; TEMP 37.2
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
[2018-01-25 08:26] VITALS: BP 131/86; BP 131/89; PULSE 106; PULSE 84; RESP 16; TEMP 36.4; TEMP 36.9
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
[2018-01-29 08:20] VITALS: BP 138/91; BP 138/93; PULSE 101; PULSE 93; RESP 16; RESP 18; TEMP 36.2; TEMP 36.9
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
[2018-01-30 08:30] VITALS: BP 137/74; BP 153/86; PULSE 100; PULSE 79; RESP 16; RESP 18; TEMP 36.6; TEMP 36.9
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
[2018-01-31 08:18] VITALS: BP 124/83; BP 146/86; PULSE 79; PULSE 97; RESP 16; TEMP 36.6; TEMP 37.1
[2018-02-01 08:30] VITALS: BP 138/85; BP 147/87; PULSE 90; PULSE 96; RESP 16; TEMP 36.6; TEMP 36.8
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
[2018-02-05 08:05] VITALS: BP 126/93; BP 137/81; PULSE 102; PULSE 86; RESP 16; TEMP 36.6; TEMP 37.2
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
[2018-02-06 09:24] VITALS: BP 138/87; BP 144/95; PULSE 113; PULSE 85; RESP 16; TEMP 36.6; TEMP 37.1
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
[2018-02-07 09:17] VITALS: BP 142/82; BP 145/91; PULSE 83; PULSE 99; RESP 16; TEMP 36.6; TEMP 36.9
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
== END 2018-02-07 23:59 ==
LOC: WC 09:00
PROVIDERS: Family Provider Family Medicine; PCP Family Medicine; Visit Provider Surgery
DX: T86.828 Other complications of skin graft (allograft) (autograft) (principal); Y83.8 Other surgical procedures as the cause of abnormal reaction of the patient, or of later complication, without mention of misadventure at the time of the procedure; M86.662 Other chronic osteomyelitis, left tibia and fibula; L84 Corns and callosities; Z87.891 Personal history of nicotine dependence; L97.822 Non-pressure chronic ulcer of other part of left lower leg with fat layer exposed; V29.9XXS Motorcycle rider (driver) (passenger) injured in unspecified traffic accident, sequela; Z79.899 Other long term (current) drug therapy; Z79.02 Long term (current) use of antithrombotics/antiplatelets; Z79.82 Long term (current) use of aspirin
CPT/HCPCS: 11042; 11045; 99183; G0277

== ENCOUNTER 2018-02-20 09:00 | Outpatient (RCR) | payer MEDICARE, SELFPAY ==
[2018-02-08 00:37] VITALS: BP 145/91; PULSE 83; RESP 16; TEMP 36.6
[2018-02-08 08:16] VITALS: BP 119/84; PULSE 112; RESP 18; TEMP 37.2
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
[2018-02-19 08:10] VITALS: BP 132/80; BP 139/84; PULSE 70; PULSE 81; RESP 16; TEMP 36.4; TEMP 37
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
[2018-02-20 09:21] VITALS: BP 138/84; BP 143/87; PULSE 75; PULSE 91; RESP 16; TEMP 36.6; TEMP 37.2
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
== END 2018-03-09 23:59 ==
LOC: WC 09:00
PROVIDERS: Family Provider Family Medicine; PCP Family Medicine; Visit Provider Surgery
DX: M86.662 Other chronic osteomyelitis, left tibia and fibula (principal); Z87.891 Personal history of nicotine dependence; V29.9XXS Motorcycle rider (driver) (passenger) injured in unspecified traffic accident, sequela; L97.826 Non-pressure chronic ulcer of other part of left lower leg with bone involvement without evidence of necrosis; Z79.899 Other long term (current) drug therapy; Z79.02 Long term (current) use of antithrombotics/antiplatelets; Z79.82 Long term (current) use of aspirin
CPT/HCPCS: 11042; 99183; G0277

== ENCOUNTER 2018-03-11 08:01 | Outpatient (RCR) | payer MEDICARE, SELFPAY ==
[2018-03-10 00:35] VITALS: BP 143/87; PULSE 75; RESP 16; TEMP 36.6
[2018-03-11 08:12] VITALS: BP 151/71; PULSE 85; RESP 18; TEMP 36.6
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
== END 2018-04-09 23:59 ==
LOC: WC 08:01
PROVIDERS: Family Provider Family Medicine; PCP Family Medicine; Visit Provider Surgery
DX: L97.826 Non-pressure chronic ulcer of other part of left lower leg with bone involvement without evidence of necrosis (principal); M86.8X6 Other osteomyelitis, lower leg; Z87.891 Personal history of nicotine dependence; H02.20 Unspecified lagophthalmos; H02.103 Unspecified ectropion of right eye, unspecified eyelid; H04.201 Unspecified epiphora, right side
CPT/HCPCS: 99212; G0463